=== PATIENT | male | born 1980 | race Caucasian/White ===

== ENCOUNTER 2022-04-29 19:01 | Emergency (ER) | payer BC, OTHER ==
[2022-04-29 19:07] VITALS: RESP 16; TEMP 98.1
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
[2022-04-29 21:02] LABS: Amphetamine Screen,Urine Not Detected (NotDetected); Barbiturate Screen,Urine Not Detected (NotDetected); Benzodiazepines Screen,Urine Not Detected (NotDetected); Cocaine Screen,Urine Not Detected (NotDetected); Methadone Screen, Urine Not Detected (NotDetected); Opiate Screen,Urine Not Detected (NotDetected); Oxycodone Screen, Urine Not Detected (NotDetected); Phencyclidine Screen,Urine Not Detected (NotDetected); Tricyclic Antidepressant,Urine Not Detected (NotDetected); Urn Cannabinoid Scrn Detected (NotDetected)
[2022-04-29] MEDS ORDERED: levETIRAcetam 500 MG TAB PO STA (22:45)
[2022-04-30 01:24] VITALS: BP 139/88; PULSE 78
[2022-04-30] MEDS ORDERED: levETIRAcetam 500 MG TAB PO SCH (09:00)
== END 2022-04-30 01:26 | disposition home or self-care (01) ==
LOC: EC 19:01
DX: F32.A Depression, unspecified (principal); F17.200 Nicotine dependence, unspecified, uncomplicated; F12.90 Cannabis use, unspecified, uncomplicated
CPT/HCPCS: 80306; 82075; 99283

== ENCOUNTER 2022-05-02 19:37 | Inpatient (IN) | payer MEDICAID, OTHER ==
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
[2022-05-02 22:06] LABS: Basophils # (A) 0.1 k/uL (0-0.2); Basophils % (A) 1 %; Eosinophils # (A) 0.3 k/uL (0-0.7); Eosinophils % (A) 3 %; HCT 38.6 % (39.0-53.0); HGB 12.5 gm/dL (13.0-17.5); Lymphocytes # (A) 2.2 k/uL (1.0-4.8); Lymphocytes % (A) 27 %; MCHC 32.5 g/dL (31.0-37.0); MCV 89.3 fL (80.0-100.0); Mean Platelet Volume 7.8; Monocytes # (A) 0.5 k/uL (0-1.0); Monocytes % (A) 6 %; Neutrophils % (A) 62 %; Platelet Count 263 k/uL (150-450); RBC 4.32 m/uL (4.30-5.90); RDW 12.5 % (11.5-15.5); WBC 8.1 k/uL (3.8-10.6)
[2022-05-02 22:14] LABS: Appearance,Urine Clear (Clear); Bilirubin,Urine Negative (Negative); Blood,Urine Negative (Negative); Color,Urine Yellow; Glucose,Urine (UA) Negative (Negative); Ketones,Urine Negative (Negative); Leukocyte Esterase,Urine Negative (Negative); Nitrite,Urine Negative (Negative); PH, Urine 5.5 (5.0-8.0); Protein,Urine Negative (Negative); Specific Gravity,Urine 1.021 (1.001-1.035); Urobilinogen,Urine <2.0 mg/dL (<2.0)
[2022-05-02 22:18] LABS: ALT 21 U/L (4-49); AST 30 U/L (17-59); African American GFR (CKD) >90 (>60 ml/min/1.73 sqM); Albumin 4.4 g/dL (3.5-5.0); Alcohol <10 mg/dL; Alkaline Phosphatase 67 U/L (38-126); Anion Gap 8 mmol/L; Blood Urea Nitrogen 10 mg/dL (9-20); Calcium 9.5 mg/dL (8.4-10.2); Carbon Dioxide 25 mmol/L (22-30); Chloride 108 mmol/L (98-107); Glucose 102 mg/dL (74-99); Non-African American GFR(CKD) >90 (>60 ml/min/1.73 sqM); Sodium 141 mmol/L (137-145); Total Bilirubin 0.3 mg/dL (0.2-1.3); Total Protein 7.1 g/dL (6.3-8.2)
[2022-05-02 22:36] LABS: Amphetamine Screen,Urine Not Detected (NotDetected); Barbiturate Screen,Urine Not Detected (NotDetected); Benzodiazepines Screen,Urine Not Detected (NotDetected); Cocaine Screen,Urine Not Detected (NotDetected); Methadone Screen, Urine Not Detected (NotDetected); Opiate Screen,Urine Not Detected (NotDetected); Oxycodone Screen, Urine Not Detected (NotDetected); Phencyclidine Screen,Urine Not Detected (NotDetected); Tricyclic Antidepressant,Urine Not Detected (NotDetected); Urn Cannabinoid Scrn Detected (NotDetected)
[2022-05-02] MEDS ORDERED: levETIRAcetam 500 MG TAB PO STA (23:35)
[2022-05-03] MEDS ORDERED: MAGNESIUM HYDROXIDE 2,400 MG/10 ML CUP PO PRN (04:26)
[2022-05-03] MEDS ORDERED: HALOPERIDOL LACTATE 5 MG/ML 1 ML VIAL IM PRN (04:26)
[2022-05-03] MEDS ORDERED: LORazepam 2 MG/ML INJ IM PRN (04:31)
[2022-05-03] MEDS ORDERED: haloperidoL 5 MG TAB PO PRN (04:32)
[2022-05-03 05:24] VITALS: RESP 16
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
[2022-05-03] MEDS: NICOTINE 14MG/24HR PATCH TRANSDERM SCH (08:59)
[2022-05-03] MEDS: levETIRAcetam 500 MG TAB PO SCH ×2 (08:59→20:30)
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
[2022-05-03] MEDS: DIVALPROEX ER 250 MG TAB.ER.24H PO SCH (20:30)
[2022-05-03] MEDS ORDERED: PALIPERIDONE 3 MG TAB.ER.24 PO SCH (21:00)
[2022-05-04] MEDS: levETIRAcetam 500 MG TAB PO SCH ×2 (09:08→21:11)
[2022-05-04] MEDS: NICOTINE 14MG/24HR PATCH TRANSDERM SCH (09:27)
[2022-05-04 10:54] LABS: Chol/HDL Ratio 3.13 Ratio; LDL Cholesterol,Calculated 105.4 mg/dL (0.0-131.0); VLDL Calculation 16.96 mg/dL (5.00-40.00)
--- NOTE | 2022-05-04 11:54 | P.PN ---
Progress Note - Text Progress Note Date: 05/04/22 Interval History: Patient was seen wandering the hallways and was directable and agreeable to gustavo gaines with senior grant writer in the office. Patient appears to be more directable today, he claims that he is feeling a bit better and feels calmer. He claims that he is taking medications and feels that they are helping him. He continues to focus on his seizures and also his brother having seizures. He appears to have improvement in his racing thoughts and also slight of ideas and was not endorsing grandiosity today. He claimed that he is going to groups and had several documents with him in his hand. He asked about the court process today. He claims that his mood is bending improving. He claimed that he did not sleep well at last night and claims that he does not want to be back on melatonin would rather try another medication. He was agreeable to start Benadryl as needed for sleep. Fair appetite. At this time patient denies any suicidal or homical ideations, intent or plan. Patient denies any auditory, visual hallucinations. Patient denies any side effects from the medications and has b een compliant with meds. Mental Status Exam: General Appearance: Patient appears to be older than stated age is alert, has madrid hair, difficult to redirect at times. Patient appears to have been imp roving hygiene and grooming. Long segura. Behavior: Patient is seated without any agitated behavior. Speech: Patient's speech is hyperverbal, improving Mood/Affect: Patient reports their mood is "ok", affect is congruent and constricted. Suicidality/Homicidality: Patient denies having any homicidal ideation intent or plan. Denies any suicidal ideations intent or plan Perceptions: Patient denies any visual hallucinations and denies any auditory hallucinations Though content/process: Tangential/circumstantial, illogical at times, improving mildly Memory and concentration: AOX3, grossly intact for the purposes of this session Judgment and insight: poor, improving midlly IMPRESSIONS: Bipolar disorder, current episode brian cannabis use disorder moderate nicotine dependence Plan: -Patient continues to meet criteria for inpatient psychiatric admission for symptom stabilization and safety. Patient has not signed adult voluntary form and medication consent and was placed in patient's chart. -Medications: Depakote ER 750 mg qhs for mood stabilization, increase invega 6 mg qhs for mood stabilization/brian, continue with keppra for AED. added benadryl prn for insomnia. depakote level saturday morning -When necessary Ativan and Haldol for agitation/aggression. -NRT - nicotine patch -SW on board for discharge planning. Encouraged the patient to participate in milieu. Currently awaiting deferral with packer insulation and court date.
[2022-05-04 17:36] LABS: Glucose,Whole Blood 94 mg/dL (70-110)
[2022-05-04] MEDS: DIVALPROEX ER 250 MG TAB.ER.24H PO SCH (21:11)
[2022-05-04] MEDS: PALIPERIDONE 6 MG TAB.ER.24 PO SCH (21:11)
[2022-05-05] MEDS: LORazepam 1 MG TAB PO PRN ×2 (00:14→21:46)
[2022-05-05] MEDS: levETIRAcetam 500 MG TAB PO SCH ×2 (09:11→20:53)
[2022-05-05] MEDS: NICOTINE 14MG/24HR PATCH TRANSDERM SCH (09:11)
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
[2022-05-05] MEDS: DIVALPROEX ER 250 MG TAB.ER.24H PO SCH (20:53)
[2022-05-05] MEDS: PALIPERIDONE 6 MG TAB.ER.24 PO SCH (20:53)
[2022-05-06] MEDS: levETIRAcetam 500 MG TAB PO SCH ×2 (09:29→20:11)
[2022-05-06] MEDS: NICOTINE 14MG/24HR PATCH TRANSDERM SCH (09:29)
[2022-05-06] MEDS: MAG HYDROX/AL HYDROX/SIMETH 30 ML CUP PO PRN (12:10)
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
[2022-05-06] MEDS: ACETAMINOPHEN TAB 325 MG TAB PO PRN ×2 (19:23→23:46)
[2022-05-06] MEDS: PALIPERIDONE 6 MG TAB.ER.24 PO SCH (20:10)
[2022-05-06] MEDS: DIVALPROEX ER 250 MG TAB.ER.24H PO SCH (20:10)
[2022-05-06] MEDS: LORazepam 1 MG TAB PO PRN (23:46)
[2022-05-07] MEDS: NICOTINE 14MG/24HR PATCH TRANSDERM SCH (08:51)
[2022-05-07] MEDS: levETIRAcetam 500 MG TAB PO SCH ×2 (08:51→20:54)
--- NOTE | 2022-05-07 14:29 | P.PN ---
Progress Note - Text Progress Note Date: 05/07/22 Clinical Problems: Bipolar disorder most recent episode manic without psychotic features, cannabis use disorder moderate, tobacco use, rule out seizure disorder Interim history: I reviewed the medical record, interviewed the patient and discussed the treatment and treatment plan with the treatment team. He was unable to provide a coherent history or provide an organized explanation as to the reason for this admission. He perseverated about seizures and appeared to believe that she has a seizure disorder because his brother has a seizure disorder. He talked about living in [place] with his brother for the last 8 years. He came to [place] "couple weeks ago" because he he was able to get an appointment with his mother's physician sooner than he could with his physician in [place]. He perseverated on seeking medical care for a seizure disorder. He has been attending therapeutic groups and activities. He is posed no management problems and episodes of behavioral dyscontrol. His been sleeping between 6 and 7 hours at night. He is compliant with prescribed psychotropic medications and denied side effects to current dose of Invega and Depakote. Mental status exam: He presented as a somewhat disheveled appearing 41-year-old male with long unkempt.. His clothes were loosefitting as though he had recently lost weight. He made eye contact and appeared to attend to interview. He had a bright facial expression. His speech was spontaneous with increased rate and rhythm. His affect was elevated and appropriate. He denied suicidal ideation and wishes. No homicidal ideation. He denied feeling hopeless, helpless or worthless. He ruminated about seizures and the circumstances that led to this hospitalization. He did not express clear ideas reference or paranoid ideation. His thinking was concrete, disorganized and at times nonlinear. He denied hallucinations did not appear to be responding to internal stimuli. Assessment: He has signs and symptoms of acute brian. Plan: Continue inpatient treatment. Safety precautions. Continue Depakote 750 mg by mouth daily at bedtime, and Invega 6 mg at bedtime. Ativan that her Haldol when necessary for anxiety, agitation acute psychosis. Keppra 1000 mg every 12 hours presumably for seizure disorder. Encouraged continued participation in therapeutic groups and activities. Evaluate clinical status response to treatment on a daily basis. Plan for discharge this week.
[2022-05-07] MEDS: PALIPERIDONE 6 MG TAB.ER.24 PO SCH (20:54)
[2022-05-07] MEDS: DIVALPROEX ER 250 MG TAB.ER.24H PO SCH (20:54)
[2022-05-08] MEDS: diphenhydrAMINE 25 MG CAP PO PRN ×2 (00:12→22:26)
[2022-05-08] MEDS: MAG HYDROX/AL HYDROX/SIMETH 30 ML CUP PO PRN ×4 (00:37→21:39)
[2022-05-08] MEDS: levETIRAcetam 500 MG TAB PO SCH ×2 (08:08→20:40)
--- NOTE | 2022-05-08 12:20 | P.PN ---
Progress Note - Text Progress Note Date: 05/08/22 Clinical Problems: Bipolar disorder most recent episode manic without psychotic features, cannabis use disorder moderate, tobacco use, rule out seizure disorder Interim history: I reviewed the medical record, interviewed the patient and discussed the treatment and treatment plan with the treatment team. He met with his chief customer officer and deferred the probate hearing. She feels that his mood is improved since admission. He did not perseverate about his use disorder or obtaining medical care for his seizure disorder. He denied side effects to either the Invega or Depakote. He is attempting therapeutic groups and activities. He slept 4 hours last night. He is posed no management problems and has had no episodes of behavioral dyscontrol. Mental status exam: He presented as a somewhat disheveled appearing 41-year-old male with long segura. His clothes were loosefitting as though he had recently lost weight. He made eye contact and appeared to attend to interview. He had a bright facial expression. His speech was spontaneous with normal rate and rhythm. His affect was stable and appropriate. He denied suicidal ideation and wishes. No homicidal ideation. He denied feeling hopeless, helpless or worthless. He did not ruminated about seizures and the circumstances that led to this hospitalization. He did not express clear ideas reference or paranoid ideation. His thinking was concrete, disorganized and at times nonlinear. He denied hallucinations did not appear to be responding to internal stimuli. Assessment: His mood is much improved from admission. Plan: Continue inpatient treatment. Safety precautions. Continue Depakote 750 mg by mouth daily at bedtime, and Invega 6 mg at bedtime. Ativan that her Haldol when necessary for anxiety, agitation acute psychosis. Keppra 1000 mg every 12 hours presumably for seizure disorder. Encouraged continued participation in therapeutic groups and activities. Evaluate clinical status response to treatment on a daily basis. Plan for discharge on 05/09/2022
[2022-05-08] MEDS: LORazepam 1 MG TAB PO PRN (13:43)
[2022-05-08] MEDS: PALIPERIDONE 6 MG TAB.ER.24 PO SCH (20:40)
[2022-05-08] MEDS: DIVALPROEX ER 250 MG TAB.ER.24H PO SCH (20:40)
[2022-05-09 06:43] VITALS: BP 116/54; PULSE 67; TEMP 97.4
[2022-05-09 08:40] LABS: Albumin 4.5 g/dL (3.5-5.0); Bilirubin, Delta 0.1 mg/dL (0.0-0.2); Bilirubin,Unconjugated 0.1 mg/dL (0.0-1.1); Total Bilirubin 0.2 mg/dL (0.2-1.3); Total Protein 7.4 g/dL (6.3-8.2)
[2022-05-09] MEDS: levETIRAcetam 500 MG TAB PO SCH (08:46)
[2022-05-09] MEDS: MAG HYDROX/AL HYDROX/SIMETH 30 ML CUP PO PRN (10:14)
--- NOTE | 2022-05-09 14:20 | P.DS ---
Providers Date of admission: 05/03/22 04:15 Attending physician: Yves Francis MD Consults: 05/03/22 04:26 Consult Physician Routine Consulting Provider: Myah Capone Consult Reason/Comments: For H & P for Medical Follow Up Do you want consulting provider notified?: Yes Primary care physician: Stated None - Discharge Diagnosis(es) (1) Bipolar disorder, most recent episode manic Current Visit: Yes Status: Acute Priority: High (2) Cannabis use disorder, mild, abuse Current Visit: Yes Status: Chronic Priority: Low (3) Tobacco use Current Visit: Yes Status: Chronic Priority: Low Hospital Course: HISTORY: 41-year-old male who presented to the psychiatric unit involuntarily. He has a history of a bipolar disorder. His mother completed a petition alleging that he wanted to kill himself and has not been taking his psychiatric medications. He showed no insight or understanding of his illness. He alleged that he came in hospital for his seizure disorder and that his "seizures" were "not in control." The admitting psychiatrist noted that he was rambling and demonstrated grandiosity and flight of ideas. His UDS was positive for THC. HOSPITAL COURSE: We admitted him to the psychiatric unit under the care of Dr. Acosta. We provided a comprehensive biopsychosocial assessment. The financial planning consultant's discuss completed initial physical exam and medical history and only diagnosed a seizure disorder. The financial planning consultant recommended to continue his Keppra 1000 mg twice a day. He did not agree to a voluntary hospitalization and we proceeded with the involuntary hospitalization. After making this started he deferred the probate hearing. He agreed to restart his psychotropic medications including Depakote 750 mg and Invega. We titrated Invega up to 6 mg per day. He posed no management problems and had no episodes of behavioral dyscontrol. He participated in therapeutic groups and activities. His overall clinical status improved during the hospitalization. His Depakote level was 38.8 and his liver function tests were normal. MENTAL STATUS ON DISCHARGE: At time of discharge she presented as a casually groomed adult male with a long graying segura. He made eye contact and attended to the interview. He had no distinguishing features or prominent physi eufemia abnormalities. He blunted but bright facial expression. He was alert and oriented to person, place and time. He had slight psychomotor retardation but no abnormal involuntary movements. Speech was spontaneous with normal rate and rhythm. His affect was blunted but stable and appropriate. He denied suicidal ideation, wishes or homicidal ideation. He denied feeling hopeless, helpless or worthless. He ruminated about his seizure disorder but did not express ideas reference, paranoid ideation or delusions. His thinking was very concrete but coherent and goal goal-directed. He denied hallucinations and did not appear to be responding to internal stimuli. DISPOSITION: He returned to his mother's home. He has an appointment scheduled with [facility] on 05/16/2022. His discharge medications are listed below. Plan - Discharge Summary New Discharge Prescriptions: New Divalproex ER [Depakote ER] 750 mg PO HS 30 Days tab levETIRAcetam [Keppra] 1,000 mg PO Q12HR 30 Days tab Paliperidone [Invega] 6 mg PO HS 30 Days tab Continue Famotidine [Pepcid] 20 mg PO BID Folic Acid 1 mg PO DAILY Thiamine [Vitamin B-1] 100 mg PO DAILY Discontinued Divalproex Sodium [Depakote] 500 mg PO DIRECTED levETIRAcetam 1,500 mg PO BID Discharge Medication List Famotidine [Pepcid] 20 mg PO BID 05/02/22 [History] Folic Acid 1 mg PO DAILY 05/02/22 [History] Thiamine [Vitamin B-1] 100 mg PO DAILY 05/02/22 [History] Divalproex ER [Depakote ER] 750 mg PO HS 30 Days tab 05/09/22 [Rx] Paliperidone [Invega] 6 mg PO HS 30 Days tab 05/09/22 [Rx] levETIRAcetam [Keppra] 1,000 mg PO Q12HR 30 Days tab 05/09/22 [Rx] Follow up Appointment(s)/Referral(s): [facility] [Outside] - 05/16/22 12:00 pm (With Hope) [facility] [NON-STAFF] - 1 Week Patient Instructions/Handouts: Seizure/Epilepsy Discharge Instructions & Follow-Up, How to Stop Smoking (DC), Bipolar Disorder (DC), Cannabis Abuse (DC) Activity/Diet/Wound Care/Special Instructions: Activity and diet as tolerated. Avoid the use of street drugs and alcohol. Take all medications as prescribed. When you are in need of refills on your medications please contact your medical provider and/or outpatient psychiatrist to have this done. Please go to scheduled outpatient appointment for aftercare treatment. If symptoms return or become worse, call the crisis line at and/or go to the nearest emergency room for evaluation Discharge Disposition: HOME SELF-CARE
== END 2022-05-09 14:54 | disposition home or self-care (01) | DRG 885 ==
LOC: EC 19:37 → 3MHU 05-03 04:15
PROVIDERS: ADMIT Psychiatry & Neurology Psychiatry; ATTEND Psychiatry & Neurology Psychiatry
DX: F31.10 Bipolar disorder, current episode manic without psychotic features, unspecified (principal); R45.851 Suicidal ideations; G40.909 Epilepsy, unspecified, not intractable, without status epilepticus; F12.20 Cannabis dependence, uncomplicated; F17.210 Nicotine dependence, cigarettes, uncomplicated; Z71.6 Tobacco abuse counseling; Z79.899 Other long term (current) drug therapy; Z91.51 Personal history of suicidal behavior; Z87.828 Personal history of other (healed) physical injury and trauma; Z81.8 Family history of other mental and behavioral disorders; Z82.0 Family history of epilepsy and other diseases of the nervous system
CPT/HCPCS: 36415; 80053; 80061; 80076; 80164; 80177; 80306; 80320; 81003; 83036; 84443; 85025; 87635; 99285

== ENCOUNTER 2025-04-28 10:25 | Observation (INO) | payer OTHER ==
[2025-04-28] MEDS: SODIUM CHLORIDE 0.9% 1,000 ML IV STA (10:57)
[2025-04-28 11:11] LABS: ALT 14 U/L (4-49); AST 29 U/L (17-59); Acetaminophen <10.0 ug/mL; African American GFR (CKD) >90 (>60 ml/min/1.73 sqM); Albumin 4.7 g/dL (3.5-5.0); Alkaline Phosphatase 57 U/L (38-126); Anion Gap 15 mmol/L; Blood Urea Nitrogen 9 mg/dL (9-20); Calcium 9.6 mg/dL (8.4-10.2); Carbon Dioxide 23 mmol/L (22-30); Chloride 102 mmol/L (98-107); Glucose 115 mg/dL (74-99); Magnesium 1.9 mg/dL (1.6-2.3); Non-African American GFR(CKD) >90 (>60 ml/min/1.73 sqM); Potassium 4.5 mmol/L (3.5-5.1); Salicylate <1.0 mg/dL; Sodium 140 mmol/L (137-145); Total Bilirubin 0.3 mg/dL (0.2-1.3); Total Protein 7.7 g/dL (6.3-8.2)
[2025-04-28 11:16] LABS: Basophils # (A) 0.04 10*3/uL (0.00-0.10); Basophils % (A) 0.6 %; Eosinophils # (A) 0.13 10*3/uL (0.04-0.35); Eosinophils % (A) 2.1 %; HCT 43.1 % (39.6-50.0); HGB 14.2 g/dL (13.0-17.0); Lymphocytes # (A) 1.59 10*3/uL (0.90-5.00); Lymphocytes % (A) 25.7 %; MCH 29.6 pg (27.0-32.0); MCHC 32.9 g/dL (32.0-37.0); MCV 89.8 fL (80.0-97.0); Mean Platelet Volume 10.1 fL (9.5-12.2); Monocytes # (A) 0.42 10*3/uL (0.20-1.00); Monocytes % (A) 6.8 %; Neutrophils # (A) 3.99 10*3/uL (1.80-7.70); Neutrophils % (A) 64.5 %; Platelet Count 262 10*3/uL (140-440); RDW 13.2 % (11.5-14.5); Valproic Acid (Depakene) 71.1 ug/mL; WBC 6.19 10*3/uL (4.50-10.00)
[2025-04-28] MEDS: ONDANSETRON 4 MG/2 ML VIAL IVP STA (11:24)
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
[2025-04-28 12:06] LABS: Appearance,Urine Clear (Clear); Bilirubin,Urine Negative (Negative); Blood,Urine Negative (Negative); Color,Urine Colorless; Glucose,Urine (UA) Negative (Negative); Ketones,Urine Negative (Negative); Leukocyte Esterase,Urine Negative (Negative); Nitrite,Urine Negative (Negative); Protein,Urine Negative (Negative); Urobilinogen,Urine <2.0 mg/dL (<2.0)
--- NOTE | 2025-04-28 12:17 | CT ---
EXAMINATION TYPE: CT brain wo con DATE OF EXAM: 04/28/2025 12:02 PM COMPARISON: None. CLINICAL INDICATION: Male, 44 years old with history of seizure activity, seizure activity TECHNIQUE: Brain: Axial CT images of the brain were obtained with coronal and sagittal reformats created and rev iewed. Contrast used: None. Oral contrast used: None. CT DLP: 1292.6 mGycm, Automated exposure control for dose reduction was used. FINDINGS: Brain: Extra-axial spaces: No abnormal extra-axial fluid collections. Ventricular system: Within normal limits Cerebral parenchyma: No acute intraparenchymal hemorrhage or mass effect. The madrid-white junction is well differentiated. Cerebellum: Unremarkable. Mass effect: No evidence of midline shift. Intracranial vasculature: unremarkable Soft tissues: Normal. Calvarium/osseous structures: No depressed skull fracture. Paranasal sinuses and mastoid air cells: Mild scattered paranasal sinus disease. Visualized orbits: Orbital contents are intact. IMPRESSION: No acute intracranial process. [facility], , 04/28/2025 12:15 PM
[2025-04-28 12:23] LABS: Amphetamine Screen,Urine Not Detected (NotDetected); Barbiturate Screen,Urine Not Detected (NotDetected); Benzodiazepines Screen,Urine Not Detected (NotDetected); Cocaine Screen,Urine Not Detected (NotDetected); Methadone Screen, Urine Not Detected (NotDetected); Opiate Screen,Urine Not Detected (NotDetected); Oxycodone Screen, Urine Not Detected (NotDetected); Phencyclidine Screen,Urine Not Detected (NotDetected); Tricyclic Antidepressant,Urine Not Detected (NotDetected); Urn Cannabinoid Scrn Detected (NotDetected)
--- NOTE | 2025-04-28 12:30 | CT ---
EXAMINATION TYPE: CT angio head neck DATE OF EXAM: 04/28/2025 12:03 PM COMPARISON: Brain same day.. CLINICAL INDICATION: Male, 44 years old with history of seizure; PHH, seizure activity TECHNIQUE: Axially acquired helical CT angiogram of the head and neck was obtained with contrast. Axi al images are supplemented with 3D reconstructions and MIP images which were post-processed at an in dependent workstation. NASCET criteria used. Contrast used:65ml mL of Isovue 370 with IV Contrast, Oral contrast used: None. CT DLP: 640.7 mGycm, Automated exposure control for dose reduction was used. FINDINGS: CTA HEAD: No evidence of acute intracranial hemorrhage, mass effect, or midline shift. The ventricles, sulci, a nd cisterns are unremarkable. Vertebral arteries: The vertebral arteries are patent. Vertebral artery dominance: Codominant Basilar artery: The basilar artery is intact. The basilar artery bifurcation is normal. Internal Carotid arteries: The cervical, petrous, cavernous and supraclinoid segments are normal. CECILIO: Patent with no evidence of aneurysm. ACOM: Present without evidence of aneurysm. MCA: Patent with no evidence of aneurysm. [employer]ING: Patent with no evidence of aneurysm. PCOM: Hypoplastic bilaterally. Dural sinuses: Patent. CTA NECK: Right Carotid System: The common carotid artery and external carotid artery are patent. The carotid bifurcation demonstrate s no evidence of hemodynamically significant stenosis. The remaining portions of the internal carotid artery demonstrate normal size without significant narrowing. Left Carotid System: The common carotid artery and external carotid artery are patent. The carotid bifurcation demonstrate s no evidence of hemodynamically significant stenosis. The remaining portions of the internal carotid artery demonstrate normal size without significant narrowing. Vertebral arteries are patent without evidence hemodynamically significant stenosis. There is a three-vessel aortic arch. The origins of the great vessels are patent. No evidence of hemo dynamically significant stenosis. Upper thorax: IMPRESSION: 1. No evidence of dissection of the cervical internal carotid arteries or vertebral arteries. 2. No any evidence of significant stenosis at the carotid bifurcations. 3. No evidence of intracranial high-grade stenosis or intracranial aneurysm. [facility], , 04/28/2025 12:28 PM
[2025-04-28] MEDS ORDERED: NALOXONE 0.4 MG/ML 1 ML VIAL IV PRN (12:45)
[2025-04-28] MEDS ORDERED: ONDANSETRON 4 MG/2 ML VIAL IVP PRN (12:51)
[2025-04-28] MEDS: levETIRAcetam IV 500 MG/5 ML VIAL IVP STA (13:09)
--- NOTE | 2025-04-28 17:53 | XR ---
EXAMINATION TYPE: XR chest 1V portable DATE OF EXAM: 04/28/2025 5:37 PM COMPARISON: None CLINICAL INDICATION: Male, 44 years old with history of chf; shortness of breath TECHNIQUE: XR chest 1V portable Frontal view of the chest. FINDINGS: Lungs/Pleura: There is no evidence of pleural effusion, focal consolidation, or pneumothorax. Pulmonary vascularity: Unremarkable. Heart/mediastinum: Cardiomediastinal silhouette is unremarkable. Musculoskeletal: No acute osseous pathology. Other findings: None IMPRESSION: No acute cardiopulmonary disease/process. [facility], , 04/28/2025 5:51 PM
[2025-04-28 20:37] LABS: Influenza A Not Detected (Not Detectd); Influenza B Not Detected (Not Detectd); RSV Not Detected (Not Detectd)
[2025-04-28] MEDS: LACOSAMIDE 150 MG TABLET PO SCH (21:26)
[2025-04-28] MEDS: DIVALPROEX ER 500 MG TAB.ER.24H PO SCH (21:26)
--- NOTE | 2025-04-28 23:24 | EEG ---
Date of Service: 04/28/25 ELECTROENCEPHALOGRAM REPORT PREAMBLE: This is a 44-year-old male with new-onset seizure in the last 2 years. The patient is currently on Vimpat and Depakote. EEG FINDINGS: This is a 21-channel digital EEG recorded with video component, utilizing 10/20 international system with referential and bipolar montages. Background consists of well-developed, moderately well regulated, mixed frequencies in 9-10 hertz alpha, with some theta activity in bihemispheric region. Background is posterior dominant and reactive to eye opening and closing. Intermittent bitemporal independent slowing in theta and some delta range were seen. Sporadic right more than left temporal sharp appearing waves were seen. Photic driving response was not seen and drowsiness was seen with appearance of bilaterally symmetric theta frequency rhythm. Some stage 2 sleep was attained with presence of sleep spindles and vertex waves. No electrographic seizure was recorded. IMPRESSION: This is an abnormal EEG due to presence of intermittent bitemporal slowing, suggestive of focal cortical neuronal dysfunction. Rare right greater than left temporal sharp appearing waves were seen, which may suggest underlying cortical irritability. Suggest prolonged EEG for further evaluation. No electrographic seizure was recorded. MMODL / IJN: [id number] / [facility]
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
[2025-04-29] MEDS: IBUPROFEN 400 MG TAB PO PRN (05:38)
[2025-04-29] MEDS: PANTOPRAZOLE 40 MG TABLET PO SCH (05:38)
[2025-04-29 07:33] VITALS: BP 136/67; PULSE 64; RESP 15; TEMP 98.1
[2025-04-29 08:13] LABS: Chloride 103 mmol/L (96-109); Glucose 99 mg/dL (70-110); Sodium 141 mmol/L (135-145)
[2025-04-29 08:14] LABS: ALT 14 U/L (10-49); AST 38 U/L (14-35); Albumin/Globulin Ratio 1.43 Ratio (1.60-3.17); Alkaline Phosphatase 44 U/L (41-126); Calcium 9.1 mg/dL (8.7-10.3); Carbon Dioxide 24.9 mmol/L (21.6-31.8); Globulin 2.8 g/dL (1.6-3.3); Total Bilirubin 0.3 mg/dL (0.3-1.2); Total Protein 6.8 g/dL (6.2-8.2)
[2025-04-29] MEDS: LOSARTAN 25 MG TAB PO SCH (08:22)
[2025-04-29 08:23] LABS: Basophils # (A) 0.02 X 10*3/uL (0.00-0.10); Basophils % (A) 0.2 %; Eosinophils # (A) 0.09 X 10*3/uL (0.04-0.35); Eosinophils % (A) 1.1 %; HGB 13.1 g/dL (13.0-17.0); Lymphocytes # (A) 2.18 X 10*3/uL (0.90-5.00); Lymphocytes % (A) 25.8 %; MCH 29.1 pg (27.0-32.0); MCHC 32.8 g/dL (32.0-37.0); MCV 88.9 FL (80.0-97.0); Mean Platelet Volume 10.2 FL (9.5-12.2); Monocytes # (A) 0.75 X 10*3/uL (0.20-1.00); Monocytes % (A) 8.9 %; NRBC Per 100 WBC 0 X 10*3/uL (0.00-0.01); Neutrophils % (A) 63.8 %; Platelet Count 277 X 10*3/uL (140-440); RDW 13.7 % (11.5-14.5); WBC 8.46 X 10*3/uL (4.50-10.00)
[2025-04-29] MEDS: ATORVASTATIN 20 MG TAB PO SCH (08:26)
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
[2025-04-29] MEDS: LACOSAMIDE 50 MG TABLET PO ONE (09:46)
[2025-04-29] MEDS ORDERED: LACOSAMIDE 50 MG TABLET PO SCH (21:00)
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
== END 2025-04-29 14:16 | disposition home or self-care (01) ==
LOC: EC 10:25 → 6NMEDSUR 12:52
PROVIDERS: ADMIT Hospitalist; ATTEND Hospitalist
DX: G40.909 Epilepsy, unspecified, not intractable, without status epilepticus (principal); F31.9 Bipolar disorder, unspecified; F41.1 Generalized anxiety disorder; F43.21 Adjustment disorder with depressed mood; F17.200 Nicotine dependence, unspecified, uncomplicated; Z11.52 Encounter for screening for COVID-19; Z79.899 Other long term (current) drug therapy; Z56.0 Unemployment, unspecified
CPT/HCPCS: 96374; 99285; 36415; 95819; 93005; 80164; 80053 ×2; 83735; 85025 ×2; 81003; 80306; 80143; 87636; 80179; 71045; 70496; 70450; 70498; G0378 ×2; J2405; Q9967